=== PATIENT | male | born 1995 | race Caucasian/White ===

== ENCOUNTER 2017-01-22 13:49 | Emergency (ER) | payer OTHER ==
[2017-01-22] MEDS ORDERED: Ibuprofen TAB* 600 MG PO ONE (14:13)
--- NOTE | 2017-01-22 14:23 | UC ---
Respiratory Complaint HPI - HPI Summary HPI Summary: Since last night, uri symptoms of sore throat and congestion and myalgias. No rashes or vomiting. No known lung disease such as asthma. - History of Current Complaint Stated Complaint: FLU SYMPTOMS Time Seen by Provider: 01/22/17 14:07 Hx Obtained From: Patient Onset/Duration: Gradual Onset, Lasting Hours Timing: Constant Severity Initially: Moderate Severity Currently: Moderate Aggravating Factors: Other - swallowing. Alleviating Factors: Nothing Associated Signs And Symptoms: Positive: Chills, URI, Nasal Congestion - Allergies/Home Medications Allergies/Adverse Reactions: Allergies Allergy/AdvReac Type Severity Reaction Status Date / Time No Known Allergies Allergy Verified 01/22/17 14:29 Home Medications: Home Medications Ibuprofen TAB* [Advil TAB*] 400 mg PO Q24H PRN 01/22/17 [History Confirmed 01/22] PMH/Surg Hx/FS Hx/Imm Hx Previously Healthy: Yes - Family History Known Family History: Positive: Other - no related family history. - Social History Occupation: Student Alcohol Use: Rare Substance Use Type: None Review of Systems ENT: Sore Throat, Sinus Congestion All Other Systems Reviewed And Are Negative: Yes Physical Exam Triage Information Reviewed: Yes Appearance: Well-Appearing, No Pain Distress, Well-Nourished Vital Signs Reviewed: Yes Eyes: Positive: Conjunctiva Clear. Negative: Conjunctiva Inflamed ENT: Positive: Pharyngeal erythema, Nasal congestion, TMs normal. Negative: Tonsillar swelling, Tonsillar exudate, Trismus, Muffled/hoarse voice Neck exam: Normal Neck: Positive: Supple, Nontender, No Lymphadenopathy. Negative: Nuchal Rigidity Respiratory: Positive: Lungs clear, Normal breath sounds, No respiratory distress, No accessory muscle use. Negative: Respiratory distress, Decreased breath sounds, Accessory muscle use, Crackles, Rhonchi, Stridor, Wheezing Cardiovascular: Positive: RRR, No Murmur, Pulses Normal, Brisk Capillary Refill Abdomen Description: Positive: Nontender, No Organomegaly, Soft. Negative: Distended, Guarding Musculoskeletal Exam: Normal Musculoskeletal: Positive: Strength Intact, ROM Intact, No Edema Neurological: Positive: Alert, Muscle Tone Normal. Negative: Fatigued, Lethargic, Unresponsive Psychological Exam: Normal Skin Exam: Normal Skin: Positive: rashes Respiratory Course/Dx - Course Course Of Treatment: we discussed options and supportive care. this is most c/w viral etiology such as mono or regular uri. Strep testing pending. we gave him the option of mono testing today versus seeing if he would get better and then testing for mono if not better - Differential Dx/Diagnosis Provider Diagnoses: viral illness. Discharge - Discharge Plan Condition: Good Disposition: HOME Patient Education Materials: Pharyngitis (ED), Upper Respiratory Infection (ED) Additional Instructions: follow up with student health or back here if not improved in 3-5 days. tylenol motrin, fluid in the meantime.
[2017-01-22 14:28] VITALS: BP 107/77
== END 2017-01-22 14:48 | disposition home or self-care (01) ==
LOC: UCCORT 13:49
DX: B34.9 Viral infection, unspecified (principal); R21 Rash and other nonspecific skin eruption
CPT/HCPCS: 87651; 99202; A9270-GY; G0463

== ENCOUNTER 2017-04-04 13:47 | Emergency (ER) | payer OTHER ==
[2017-04-04 14:48] VITALS: BP 93/75
[2017-04-04] MEDS ORDERED: Ibuprofen TAB* 600 MG PO ONE (15:19)
--- NOTE | 2017-04-04 16:06 | UC ---
Throat Pain/Nasal [place] HPI - HPI Summary HPI Summary: sore throat x 3 days pain is sever, no cough ,no nasal congestion , + nausea / vomiting , + abdominal pain - History of Current Complaint Chief Complaint: UCGeneralIllness Stated Complaint: ST/FEVER/BODY ACHES Time Seen by Provider: 04/04/17 14:57 Hx Obtained From: Patient Onset/Duration: Gradual Onset, Lasting Days - 3, Still Present Severity: Severe Pain Intensity: 7 Pain Scale Used: 0-10 Numeric Cough: None Associated Signs & Symptoms: Positive: Fever, Vomiting. Negative: Dysphagia, FB Sensation, Drooling, Wheezing, Sinus Discomfort, Nasal Discharge, Rash - Allergies/Home Medications Allergies/Adverse Reactions: Allergies Allergy/AdvReac Type Severity Reaction Status Date / Time No Known Allergies Allergy Verified 04/04/17 14:48 PMH/Surg Hx/FS Hx/Imm Hx Previously Healthy: Yes - Surgical History Surgical History: Yes Surgery Procedure, Year, and Place: tooth extraction 05/2016 - Family History Known Family History: Positive: Other - no related family history. Negative: Diabetes - Social History Alcohol Use: Rare Alcohol Amount: 6 Substance Use Type: None Substance Use Comment - Amount & Last Used: one week Smoking Status (MU): Never Smoked Tobacco Review of Systems Constitutional: Fever, Chills, Fatigue Skin: Negative Eyes: Negative ENT: Sore Throat Respiratory: Negative Cardiovascular: Negative Gastrointestinal: Negative Genitourinary: Negative Motor: Negative Neurovascular: Negative Musculoskeletal: Negative Neurological: Negative Psychological: Negative Is Patient Immunocompromised?: No All Other Systems Reviewed And Are Negative: Yes Physical Exam Triage Information Reviewed: Yes Appearance: Well-Nourished, Pain Distress Vital Signs: Initial Vital Signs Temp 100.0 F 04/04/17 14:43 Pulse 81 04/04/17 14:43 Resp 18 04/04/17 14:43 BP 93/75 04/04/17 14:43 Pulse Ox 100 04/04/17 14:43 Vital Signs Reviewed: Yes Eyes: Positive: Conjunctiva Clear ENT: Positive: Normal ENT inspection, Hearing grossly normal, Pharyngeal erythema, TMs normal. Negative: Nasal congestion, Nasal drainage, Tonsillar swelling, Tonsillar exudate Neck: Positive: Enlarged Nodes @ Respiratory Exam: Normal Respiratory: Positive: Chest non-tender, Lungs clear, Normal breath sounds Cardiovascular: Positive: RRR, No Murmur, Pulses Normal Abdominal Exam: Normal Abdomen Description: Positive: Nontender, Soft. Negative: Distended, Guarding Bowel Sounds: Positive: Present Musculoskeletal Exam: Normal Skin Exam: Normal Throat Pain/Nasal Course/Dx - Differential Dx/Diagnosis Provider Diagnoses: strep pharyngitis Discharge - Discharge Plan Condition: Stable Disposition: HOME Prescriptions: Amoxicillin PO (*) [Amoxicillin 875 MG (*)] 875 mg PO BID #20 tab Patient Education Materials: Strep Throat (ED) Forms: *School Release Referrals: Non Staff,Doctor [Primary Care Provider] - If Needed
== END 2017-04-04 15:43 | disposition home or self-care (01) ==
LOC: UCCORT 13:47
DX: J02.0 Streptococcal pharyngitis (principal)
CPT/HCPCS: 87502; 87651; 99212; A9270-GY; G0463

== ENCOUNTER 2017-08-28 19:17 | Emergency (ER) | payer MEDICAID, OTHER ==
[2017-08-28 20:54] VITALS: BP 120/63
[2017-08-28] MEDS ORDERED: Amoxicillin PO (*) 500 MG CAP PO ONE (21:05)
--- NOTE | 2017-08-28 21:05 | ED ---
Throat Pain/Nasal Congestion - HPI Summary HPI Summary: 22 yr old with sore throat for about two days. Has a room mate that tested positive for strep. No other complaints. Denies fever. - History of Current Complaint Chief Complaint: UCRespiratory Time Seen by Provider: 08/28/17 20:49 - Allergies/Home Medications Allergies/Adverse Reactions: Allergies Allergy/AdvReac Type Severity Reaction Status Date / Time No Known Allergies Allergy Verified 08/28/17 20:51 PMH/Surg Hx/FS Hx/Imm Hx - Surgical History Surgery Procedure, Year, and Place: tooth extraction 05/2016 Infectious Disease History: No Infectious Disease History: Denies: Traveled Outside the [place] in Last 30 Days - Family History Known Family History: Positive: Other - no related family history. Negative: Diabetes - Social History Occupation: Student Lives: Dormitory/Roommates Alcohol Use: Occasionally Alcohol Amount: 6 Substance Use Type: Reports: None Substance Use Comment - Amount & Last Used: one week Smoking Status (MU): Never Smoked Tobacco Review of Systems Constitutional: Negative Positive: Sore Throat All Other Systems Reviewed And Are Negative: Yes Physical Exam Triage Information Reviewed: Yes Vital Signs On Initial Exam: Initial Vitals Temp Pulse Resp BP Pulse Ox 98 F 66 16 120/63 100 08/28/17 20:52 08/28/17 20:52 08/28/17 20:52 08/28/17 20:52 08/28/17 20:52 Vital Signs Reviewed: Yes Appearance: Positive: Well-Appearing, No Pain Distress Skin: Positive: Warm, Skin Color Reflects Adequate Perfusion Head/Face: Positive: Normal Head/Face Inspection Eyes: Positive: EOMI ENT: Positive: Pharyngeal erythema, TMs normal. Negative: Nasal congestion, Tonsillar swelling, Tonsillar exudate Neck: Positive: Nontender, No Lymphadenopathy Respiratory/Lung Sounds: Positive: Clear to Auscultation, Breath Sounds Present Cardiovascular: Positive: RRR. Negative: Murmur Abdomen Description: Negative: Distended Musculoskeletal: Positive: Strength/ROM Intact Neurological: Positive: Sensory/Motor Intact, Alert, Oriented to Person Place, Time, CN Intact II-III Psychiatric: Positive: Normal - [place] Coma Scale Best Eye Response: 4 - Spontaneous Best Motor Response: 6 - Obeys Commands Best Verbal Response: 5 - Oriented Coma Scale Total: 15 Diagnostics - Vital Signs Vital Signs Temp Pulse Resp BP Pulse Ox 08/28/17 20:52 98 F 66 16 120/63 100 - Laboratory Lab Statement: Any lab studies that have been ordered have been reviewed, and results considered in the medical decision making process. EENT Course/Dx - Course Course Of Treatment: strep pharyngitis, rx amox - Diagnoses Provider Diagnoses: Strep pharyngitis Discharge - Sign-Out/Discharge Documenting (check all that apply): Discharge/Admit/Transfer - Discharge Plan Condition: Good Disposition: HOME Prescriptions: Amoxicillin PO (*) [Amoxicillin 500 MG CAP*] 500 mg PO TID #30 cap Patient Education Materials: Strep Throat (DC) Referrals: Non Staff,Doctor [Primary Care Provider] - [facility] [Outside] - Billing Disposition and Condition Condition: GOOD Disposition: HOME
== END 2017-08-28 21:14 | disposition home or self-care (01) ==
LOC: UCCORT 19:17
DX: J02.0 Streptococcal pharyngitis (principal)
CPT/HCPCS: 87651; 99212; A9270-GY; G0463